=== PATIENT | female | born 1960 | race Caucasian/White ===

== ENCOUNTER → 2018-07-19 | Outpatient (CLI) | payer OTHER ==
[~2018-07-19] MED LIST: REGADENOSON 0.4 MG/5 ML DISP.SYRIN. IV ONE
--- NOTE | 2018-07-19 09:01 | PCVCIMAG ---
APPROVED REPORT Study performed: 07/19/2018 08:03:13 EXAM: Comprehensive 2D, Doppler, and color-flow Echocardiogram Patient Location: Echo lab Status: routine BSA: 1.84 HR: 74 bpmBP: 142/100 mmHg Rhythm: NSR Other Information Study Quality: Adequate Risk Factors: Cardiac Risk Factors: HTN Indications Chest Pain 2D Dimensions IVSd: 10.63 (7-11mm) LVDd: 37.50 mm PWd: 10.51 (7-11mm)Ascending Ao: 32.96 (22-36mm) LVDs: 30.94 (25-40mm) Left Atrium: 32.63 (27-40mm) Aortic Root: 32.02 mm LV Single Plane 4CH: 53.44 % LV Single Plane 2CH: 61.92 % Biplane EF: 56.9 % Volumes Left Atrial Volume (Systole) Single Plane 4CH: 38.48 mLSingle Plane 2CH: 50.93 mL LA ESV Index: 25.00 mL/m2 Aortic Valve AoV Peak Michael.: 1.06 m/s AO Peak Gr.: 4.48 mmHgLVOT Max P.98 mmHg LVOT Max V: 0.86 m/s Mitral Valve E/A Ratio: 0.7 MV Decel. Time: 216.83 ms MV E Max Michael.: 0.41 m/s MV A Michael.: 0.58 m/s IVRT: 138.41 ms Pulmonary Valve PV Peak Michael.: 0.67 m/sPV Peak Gr.: 1.81 mmHg Pulmonary Vein P Vein S: 0.25 m/sP Vein A: 0.33 m/s P Vein D: 0.31 m/sP Vein A Dur.: 121.1 msec P Vein S/D Ratio: 0.81 Tricuspid Valve TR Peak Michael.: 2.39 m/s TR Peak Gr.: 22.93 mmHg Left Ventricle The left ventricle is normal size. There is normal LV segmental wall motion. There is normal left ventricular wall thickness. Left ventricular systolic function is normal. The left ventricular ejection fraction is within the normal range. LVEF is 55%. Mild diastolic dysfunction is present (impaired relaxation pattern). Right Ventricle The right ventricle is normal size. The right ventricular systolic function is normal. Atria The left atrium size is normal. The right atrium size is normal. Aortic Valve The aortic valve is normal in structure. No aortic regurgitation is present. There is no aortic valvular stenosis. Mitral Valve The mitral valve is normal in structure. Mild mitral regurgitation. No evidence of mitral valve stenosis. Tricuspid Valve The tricuspid valve is normal in structure. Mild tricuspid regurgitation with PAP of 30 mmHg. Pulmonic Valve The pulmonary valve is normal in structure. There is no pulmonic valvular regurgitation. Great Vessels The aortic root is normal in size. IVC is normal in size and collapses >50% with inspiration. Pericardium There is no pericardial effusion. There is no pleural effusion. <Conclusion> Left ventricular systolic function is normal. There is normal LV segmental wall motion. LVEF is 55%. Mild diastolic dysfunction The aortic valve is normal in structure. No aortic regurgitation or stenosis. The mitral valve is normal in structure. Mild mitral regurgitation. Mild tricuspid regurgitation with pulmonary artery pressure of 30 mmHg. There is no pericardial effusion.
--- NOTE | 2018-07-20 09:26 | PCVCIMAG ---
APPROVED REPORT Imaging Protocol: Rest Tc-99m/Stress Tc-99m 1 day Study performed: 07/19/2018 09:21:06 Indication: Chest pain Patient Location: Out-Patient Stress Nurse: Yulissa Neves RN, Marleen Berrios RN MI Tech:Saundra [place] [facility] Ht: 5 ft 6 in Wt: 165 lbs BSA: 1.84 m2 HR: 80 bpm BP: 143/73 mmHg BMI: 26.6 Medical History Medical History: Hyperlipidemia, HTN Medications: Valsartan Allergies: Lisinopril Cardiac Risk Factors: Age Pretest Chest Pain Characteristics: No chest pain Exercise History: Physically active Physical Disabilities: Back pain, unable to use incline on treadmill Resting Data Rest SPECT myocardial perfusion imaging was performed in supine position 45 minutes following the intravenous injection of 10.6 mCi of Tc-99m Sestamibi. Time of rest injection: 0900 Date: 07/19/2018 Administration Route: IV Administration Site: Right AC Pharmacologic Stress Pharmacologic stress test was performed by injecting Regadenoson 0.4 mg IV push over 10-15 seconds immediately followed by the intravenous injection of 31.6 mCi of Tc-99m Sestamibi. Time of stress injection: 1015 Date: 07/19/2018 Administration Route: IV Administration Site: Right AC Gated Stress SPECT was performed 45 minutes after stress injection. The images were gated to evaluate regional wall motion and calculate left ventricular ejection fraction. Stress Test Details Stress Test: Pharmacologic stress was paired with low level exercise. Reason for pharmacologic stress test: Severe low back issues. HRMax Heart Rate (APMHR): 162 bpm Resting HR: 80 bpmTarget HR (85% APMHR): 137 bpm Max HR Achieved: 115 bpm % of APMHR: 70 Recovery HR: 94 bpm BP Resting BP: 143/73 mmHg Max BP: 142/70 mmHg Recovery BP: 137/66 mmHg ECG Resting ECG: Normal Sinus Rhythm Stress ECG: Sinus Tachycardia ST Change: None Maximum ST Deviation: 0 mm Arrhythmia: None Recovery ECG: Sinus Rhythm Recovery ST Change: None Recovery ST Deviation: 0 mm Recovery Arrhythmia: None Clinical Reason for Termination: Completed protocol Stress Symptoms: Leg Pain, Arm Pain, Headache Exercise duration: 4 min 00 sec Exercise capacity: 1.6 METs Symptoms resolved with caffeine. Stress ECG Conclusion Clinical: Non-ischemic ECG: Non-ischemic Study Data Post stress, the left ventricular ejection was 62%.. SSS: 0 SRS: 0 SDS: 0 TID = 1.14. Perfusion No evidence of stress induced ischemia or prior myocardial infarction. Wall Motion Normal left ventricular size and function with no regional wall motion abnormalities. Nuclear Conclusion No evidence of stress induced ischemia or prior myocardial infarction. Normal left ventricular size and function with no regional wall motion abnormalities. Post stress, the left ventricular ejection was 62%. No prior study available for comparison. Interpreted by: Olivier Saunders MD Electronically Approved: 07/19/2018 15:17:43 <Conclusion> Clinical: Non-ischemic ECG: Non-ischemic
== END | disposition home or self-care (01) ==
LOC: PCVCIMAG 09:12
PROVIDERS: ATTEND Internal Medicine
DX: I08.1 Rheumatic disorders of both mitral and tricuspid valves (principal); R07.9 Chest pain, unspecified; R07.2 Precordial pain; R94.31 Abnormal electrocardiogram [ECG] [EKG]
CPT/HCPCS: 78452; 93017; 93306; A9500; J2785